=== PATIENT | male | born 1945 | race Caucasian/White ===

== ENCOUNTER 2016-09-22 11:00 | Inpatient (IN) | payer MEDICARE, BC ==
[~2016-09-22] VITALS: Ht 175.3 cm; Wt 65.8 kg
--- NOTE | ~2016-09-22 | OR ---
PATIENT'S NAME: FENGCLARI Robrets [facility] AGE: 71 Y [address] ROOM: [place] [address] LOCATION: [facility] ADMIT DATE: 09/29/2016 OR/Procedure Report DISCHARGE DATE: FAMILY PHYSICIAN: LAURA FERRARO MD ATTENDING PHYSICIAN: Pop Davis SURGEON: Pop Davis MD BALLOON DESIGN PRINTER: DATE OF PROCEDURE: 09/29/2016 PREOPERATIVE DIAGNOSES: 1. Lumbar degenerative disk disease. 2. Lumbar spondylolisthesis. 3. Lumbar spinal stenosis. 4. Lumbar radiculopathy. 5. Low back pain. POSTOPERATIVE DIAGNOSES: 1. Lumbar degenerative disk disease. 2. Lumbar spondylolisthesis. 3. Lumbar spinal stenosis. 4. Lumbar radiculopathy. 5. Low back pain. PROCEDURE PERFORMED: 1. Lumbar laminectomy, L3 decompression, L3-4 interspace. 2. Lumbar fusion combined technique, including transforaminal lumbar interbody fusion plus posterolateral fusion, L3-4. 3. Application of spinal prosthetic cage, L3-4 interspace. 4. Application of pedicle screw instrumentation, nonsegmental, single gabby and screws bilateral L3-4. 5. Glen of bone marrow aspirate transpedicular technique. Vertebral body, left L3. MAGAZINE REPAIRER: JASPREET Savage. ANESTHESIA: General. ESTIMATED BLOOD LOSS: 50 mL. COMPLICATIONS: None. SPECIMENS: None. FINDINGS: Severe stenosis. PATIENT'S NAME: FENGCLARI Roberts [facility] AGE: 71 Y [address] ROOM: [place] [address] LOCATION: [facility] ADMIT DATE: 09/29/2016 OR/Procedure Report DISCHARGE DATE: FAMILY PHYSICIAN: LAURA FERRARO MD ATTENDING PHYSICIAN: Pop Davis INSTRUMENTATION USED: Globus [place] pedicle screw fixation and Caliber expandable cage. OPERATIVE INDICATIONS: The patient is a 71-year-old male who I have followed for symptomatic lumbar spondylolisthesis, stenosis, and radiculopathy with low back pain. He had failed conservative treatment and was offered surgery in the form of a lumbar decompression and fusion. After details, risks, benefits, and options were explained, he freely consented to surgery. OPERATIVE NARRATIVE: After the patient was correctly identified and operative site initialed, he was taken back to the operating room, placed in supine position. After general anesthesia was induced, he was placed in the prone position on the Brock table with all bony prominences well-padded and protected. The back was prepped and draped in the usual sterile fashion. Time-out was taken to verify the patient and procedure. 10 cc of 0.25% Marcaine with epinephrine was injected in line with the incision. 10 blade was used to make a midline incision over the operative levels. Dissection was taken down through subcutaneous tissue with electrocautery. The subperiosteal dissection was performed after incising the fascia to expose L3 posterior elements including the L3-4 transverse processes. A Kerrison was placed on the lamina and verified at the L3-4 interspace. The inferior half of the spinous process was taken down and then the left side of the lamina and facet was resected using a combination of bur, Kerrison, and Leksell rongeur. The dura was identified. Wound plane was released and resected. The dura was decompressed as was the exiting nerve root. After the transforaminal exposure had been completed, the dura decompressed on that side. Lamina spreaders were placed in the interspinous space between the L3 and L4 to distract the collapsed disk space. The disk was exposed by gently medially retracting the dura. It was incised with a #15 blade and debrided using pituitaries, curettes, and Kerrisons. The disk space leora were used to debride the disk and prepare the interspace. After disk space was prepared, it was packed with BMP and bone graft. The same graft material was packed into the cage, which was impacted into the disk space of L3-4 and recessed below the posterior vertebral margin. It was expanded to its torque limiting height. The reference frame for the Stealth navigation was attached to the L2 spinous process and the O-arm was brought in for a scan. Under Stealth navigation, the pedicles were localized at L3 and L4. After the pedicle hole was created on the left at L3, a bone marrow aspirate needle was introduced into the vertebral body and bone marrow aspirate was obtained and mixed with bone graft medical records coder. All pedicle screws were placed at L3 and L4 bilaterally and then placement confirmed on the O-arm scan. The remaining spinous process and lamina on the right side was resected and the dura was decompressed throughout. Rods were reduced to the pedicle screws, set caps were placed and tightened into the appropriate torque. A high-speed bur was used to decorticate the right-sided L3-L4 transverse processes. The remaining bone PATIENT'S NAME: CLARI FENG [facility] AGE: 71 Y [address] ROOM: [place] [address] LOCATION: [facility] ADMIT DATE: 09/29/2016 OR/Procedure Report DISCHARGE DATE: FAMILY PHYSICIAN: LAURA FERRARO MD ATTENDING PHYSICIAN: Pop Davis graft bone marrow aspirate and bone graft medical records coder were packed in the right lateral gutter. The wound was irrigated and dried. DuraSeal was injected over the disk space to isolate it from the spinal canal. 1 g of vancomycin powder was divided between superficial and deep tissue. The wound was then repaired in layers with #1 Vicryl in the fascia and 0 Vicryl in subcutaneous tissue and maria de jesus in the skin. Sterile dressing was applied. The patient was awakened from anesthesia and taken to recovery room in stable condition. pediatric medical assistant was necessary in this procedure for evacuation of blood, and assistance with placement of the TLIF cage for fusion and pedicle screw fixation for stabilization. MD SHOBHA ENCARNACIONM/modl /[id number] d: 09/29/162126 t: 09/30/16 1420, OPERATIVE SUMMARY
--- NOTE | ~2016-09-22 | DS ---
PATIENT'S NAME: GARRETT FENG [facility] AGE: 71 Y [address] ROOM: [address] [address] LOCATION: [facility] ADMIT DATE: 09/29/2016 Discharge Summary DISCHARGE DATE: 10/01/2016 FAMILY PHYSICIAN: Sindy Beltran MD ATTENDING PHYSICIAN: Alyce Hurtado ADMIT DIAGNOSES: 1. Lumbar degenerative disk disease. 2. Lumbar spondylolisthesis. 3. Lumbar spinal stenosis. 4. Lumbar radiculopathy. 5. Low back pain. DISCHARGE DIAGNOSES: 1. Lumbar degenerative disk disease. 2. Lumbar spondylolisthesis. 3. Lumbar spinal stenosis. 4. Lumbar radiculopathy. 5. Low back pain. PROCEDURE PERFORMED: Lumbar laminectomy with interbody fusion across L3-4 with posterior pedicle screw instrumentation L3-4. HISTORY OF PRESENT ILLNESS: Garrett is a male who has been followed in our clinic for conservative treatment for ongoing low back pain and leg pain. He failed conservative treatment measures. At which point, the patient was given the option of undergoing lumbar decompression and fusion. The risks, benefits, and limitations of procedure were discussed. He consented to proceed with surgery. HOSPITAL COURSE: The patient was admitted through same-day surgery, underwent those above-stated procedure, was recovered in the PACU, and transferred to [address] [place] [address] in stable condition. The patient was initially treated with IV pain medication and transitioned to oral pain medication. He had further adequate pain control. He was somewhat limited in his mobility initially, but did gradually improve. He was eventually wanted no person assist. He was using a walker for assistance with ambulation. He was wearing his back brace. Hemoglobin and hematocrit were stable throughout. He did not require blood transfusion. Incision is clean, dry, and intact with no signs of infection. Vital signs are stable and afebrile throughout the hospital course. Minimal assisting of his bilateral lower extremities showed no deficits. DISCHARGE COURSE: The patient is discharged home on 10/01/2016 reminded of his postoperative restrictions, care for his incision and dressing, and use of his brace. He is to follow up with Dr. Hurtado at approximately 10 days. All PATIENT'S NAME: GARRETT FENG [facility] AGE: 71 Y [address] ROOM: [id number] [place] [id number] LOCATION: [facility] ADMIT DATE: 09/29/2016 Discharge Summary DISCHARGE DATE: 10/01/2016 FAMILY PHYSICIAN: Sindy Beltran MD ATTENDING PHYSICIAN: Alyce Hurtado of his questions were answered at this time. He is discharged home with oral pain medication and muscle relaxers. JASPREET LANG FOR ALYCE HURTADO MD JTF/modl /[id number] d: 10/22/16 0246 t: 11/02/16 1155, DISCHARGE SUMMARY
[2016-09-22] MEDS ORDERED: METFORMIN HCL500 M2 PO (11:51)
[2016-09-22] MEDS ORDERED: GLUCOTROL10 MG PO (11:52)
[2016-09-22] MEDS ORDERED: ONGLYZA5 MG PO (11:53)
[2016-09-22] MEDS ORDERED: COZAAR50 MG PO (11:54)
[2016-09-22] MEDS ORDERED: MOBIC15 MG PO (11:54)
[2016-09-22] MEDS ORDERED: ASPIRIN EC81 MG PO (11:55)
[2016-09-22] MEDS ORDERED: LIPITOR10 MG PO (11:55)
[2016-09-22] MEDS ORDERED: FISH OIL 1,2001 EAC3 PO (11:56)
--- NOTE | 2016-09-29 18:12 | NUR ---
Significant Event: TO ROOM AT 1515.. BACK DRSG D/I, CSM GOOD TO ALL EXTREM..BACK DRSG D/I. BACK BRACE APPLIED. C/O EYES ITCHING,WARM WASH CLOTHES APPLIED. HAS ISAMAR , TAKING SIPS WATER, ENC TO USE IS... Follow up:
--- NOTE | 2016-09-30 04:29 | NUR ---
Significant Event: Alert and oriented X3. Vital signs stable. Neurochecks WNL. Denies N/T. Denies headache. Bowel sounds hypoactive this am. Nausea after Soma and Roxicodne given @ 0010. Zofran given at 0040 with effectivness. Oxydone then given again @ 0325 (on empty stomach, refused crackers at this time) and had a 100 ml emesis 30 min after. Pt has Dilaudid DATA ENTRY TECHNICIAN, button has been off to side, prefers to try oral pain medication. Pt has not used any Dilaudid this shift. Has been rating pain 3-4/10 and tolerable. Dressing to posterior back has a quarter size area of shadow drainage. Rico in place, will remove this am. IV to L) FA running at 125 ml/hr. SL to R) hand. Accucheck at HS was 295, on mild sliding scale. Follow up: Next Atb @ 1100. Continue to monitor accuchecks. Change pain medication, Nucynta?
[2016-09-30 05:58] LABS: BASOPHIL % 0.1 %; HEMATOCRIT 33.5 % (37.0-53.0); HEMOGLOBIN 11.6 g/dL (11.0-16.0); IMMATURE GRANULOCYTE # 0.1 K/uL (0.0-0.3); IMMATURE GRANULOCYTE % 0.5 %; LYMPHOCYTE # 0.9 K/uL (0.8-4.0); LYMPHOCYTE % 8.9 %; MCH 32.4 pg (27.0-34.0); MCHC 34.6 gm/dL (32.0-36.5); MCV 93.6 fl (83.0-98.0); MONOCYTE # 0.7 K/uL (0.0-1.0); MONOCYTE % 6.9 %; MPV 9.4 fl (9.4-12.4); NEUTROPHIL # (ANC) 8.4 K/uL (1.4-9.0); NEUTROPHIL % 83.6 %; NRBC % 0 /100WBC (0-0.00); PLATELET COUNT 188 K/uL (150-450); RDW-CV 11.8 % (11.9-14.6)
[2016-09-30 06:00] LABS: RBC 3.58 M/uL (3.50-5.50)
[2016-09-30 06:12] LABS: ALBUMIN 3.4 gm/dL (3.5-5.0); ANION GAP 14.3 (10.0-19.0); CALCIUM 8.2 mg/dL (8.5-10.5); CREATININE 1.2 mg/dL (0.6-1.3); PHOSPHORUS 3.6 mg/dL (2.5-4.9); POTASSIUM 4.3 mMol/L (3.7-5.1)
--- NOTE | 2016-09-30 16:29 | NUR ---
Significant Event: Ambulates with SBA and walker. Back brace when out of bed. Oxycodone IR 5 mg for pain control, will give one prior to shift change. Denies nausea. Lightheaded and dizzy in bathroom when working with OT this am, no complaints since. Dressing intact with old marked drainage. Voids without difficulty. C/O feeling constipated, milk of magnesia given this am. Plans to dismiss to home tomorrow. Follow up:
--- NOTE | 2016-10-01 05:06 | NUR ---
Significant Event: Alert and oriented X3. Vital signs stable. Neurochecks WNL. Small amount of bloody drainage to dressing. Ambulates with SBA. Ambulates in diaz. Bed alarm on, pt got up by himself without calling. No BM this shift. Stool softners and prune juice given. Upper quadrant bowel sounds are hypoactive. Denies nausea. Follow up: Plans to discharge home today.
--- NOTE | 2016-10-01 06:53 | NUR ---
[phone] Supervised [facility] [employer] Nurse.
[2016-10-01] MEDS ORDERED: SURFAK240 MG PO (09:53)
[2016-10-01] MEDS ORDERED: MIRALAX17 GM PO (09:53)
[2016-10-01] MEDS ORDERED: SOMA350 MG PO (09:54)
[2016-10-01] MEDS ORDERED: MILK OF MA400 MG/5 M PO (09:55)
[2016-10-01] MEDS ORDERED: ROXICODONE 5MG (5 MG PO (09:56)
--- NOTE | 2016-10-01 13:00 | NUR ---
D: PATIENT ALERT AND ORIENTED X3. CSM ASSESSMENTS WNL TO BILATERAL UPPER AND LOWER EXTREMITIES. BACK DRESSING C/D/I. RATES BACK PAIN 2/3 ON PAIN SCALE, REFUSED PAIN MED'S WHEN OFFERED. AMBULATES IN TORRES AND TO BATHROOM WITH SBA, USE OF GAIT BELT, TOLERATES WELL. BILATERAL KNEE HIGH TEDS ON. ACCUCHECKS 341 AT 0700 AND 328 AT 1100, INSULIN GIVEN PER SLIDING SCALE. DULCOLAX SUPPOSITORY GIVEN AT 0933, WITH SMALL RESULTS. DISCHARGE INSTRUCTIONS REVIEWED WITH PATIENT AND , VERBALIZES UNDERSTANDING. PATIENT DISMISSED TO HOME, ACCOMPANIED BY . ASSISTED TO VEHICLE VIA W/D AND TA ASSISTANCE. NOTE BACK DRESSING CHANGED THIS AM AFTER SHOWER, DUE TO DRESSING GETTING WET. [place] BARRIER DRESSING APPLIED.
== END 2016-10-01 13:15 | disposition disaster alternative care site (69) | DRG 460 ==
LOC: G3N 09-29 08:28
PROVIDERS: Nurse Practitioner Family; ADMIT Orthopaedic Surgery Orthopaedic Surgery of the Spine
PROC: 00NY0ZZ Release Lumbar Spinal Cord, Open Approach (ICD-10-PCS; principal; 2016-09-29)
PROC: 0SG00ZJ (ICD-10-PCS; 2016-09-29)
PROC: 0SB20ZZ Excision of Lumbar Vertebral Disc, Open Approach (ICD-10-PCS; 2016-09-29)
PROC: 079T3ZZ Drainage of Bone Marrow, Percutaneous Approach (ICD-10-PCS; 2016-09-29)
DX: M51.36 Other intervertebral disc degeneration, lumbar region (principal); N17.9 Acute kidney failure, unspecified; D64.9 Anemia, unspecified; E11.9 Type 2 diabetes mellitus without complications; I10 Essential (primary) hypertension; I25.10 Atherosclerotic heart disease of native coronary artery without angina pectoris; M48.06 Spinal stenosis, lumbar region; M43.16 Spondylolisthesis, lumbar region; M54.16 Radiculopathy, lumbar region
CPT/HCPCS: C1713; J0171; J0690; J1100; J1170; J2001; J2250; J2405; J3010; J3370; J3480; J7030